=== PATIENT | female | born 1990 | race Caucasian/White ===

== ENCOUNTER 2018-04-04 09:27 | Emergency (ER) | payer SELFPAY ==
[~2018-04-04] VITALS: Ht 172.7 cm; Wt 103.2 kg
[2018-04-04 10:04] LABS: HEMATOCRIT 33.9 % (36.0-46.0); MCH 30.5 PG (29.0-34.0); MCHC 35.4 G/DL (30.0-36.0); PLATELET COUNT 231 K/uL (156-360); RBC DIS.WIDTH-CV 12.7 % (11.8-14.6); RBC DIS.WIDTH-SD 39.8 % (39-53); RED BLOOD COUNT 3.94 M/uL (3.80-5.20); WHITE BLOOD COUNT 11.9 K/uL (4.1-10.2)
[2018-04-04 10:12] LABS: APPEARANCE CLOUDY ((CLEAR)); BILIRUBIN NEGATIVE; BLOOD NEGATIVE; COLOR YELLOW ((YELLOW)); GLUCOSE (STRIP) NEGATIVE; KETONES NEGATIVE; LEUKOCYTES NEGATIVE; NITRITE NEGATIVE; PROTEIN (STRIP) 30; SPECIFIC GRAVITY 1.024 (1.000-1.030); UROBILINOGEN 0.2 MG/DL (0.2-1.0)
[2018-04-04 10:14] LABS: CHLORIDE 104 mEq/L (99-109); POTASSIUM 3.7 mEq/L (3.7-5.4); SODIUM 135 mEq/L (136-147)
[2018-04-04 10:16] LABS: GLUCOSE 103 mg/dL (70-99)
[2018-04-04 10:20] LABS: CREATININE 0.6 mg/dL (0.6-1.3); GFR ESTIMATE (CALCULATED) > 59 mL/min/
[2018-04-04 10:21] LABS: UREA NITROGEN (BUN) 10 mg/dL (9-23)
[2018-04-04 10:46] LABS: QUANTITATIVE HCG 25015.4 MIU/ML
[2018-04-04 10:47] LABS: AMORPHOUS URATES CRYSTALS 2+; BACTERIA RARE /HPF; EPITHELIAL CELLS 1+ /HPF; MUCUS NONE SEEN /LPF; RED BLOOD CELLS 0-5 /HPF (0-5); UCUL ADDED? NO; WHITE BLOOD CELLS 0-5 /HPF (0-5)
[2018-04-04 12:27] LABS: SOURCE SWAB
[2018-04-04] MEDS ORDERED: PERCOCET 5/31 TABLET PO (12:37)
[2018-04-04 13:27] VITALS: BP 102/63
== END 2018-04-04 13:28 | disposition home or self-care (01) ==
LOC: EME 09:27
PROVIDERS: Emergency Medicine
DX: O34.82 Maternal care for other abnormalities of pelvic organs, second trimester (principal); N83.201 Unspecified ovarian cyst, right side; Z3A.18 18 weeks gestation of pregnancy
CPT/HCPCS: 76805; 80048; 81003; 84702; 85027; 87210; 87491; 87591; 99281; 99285; J2270; J2405; J7030